=== PATIENT | female | born 1990 | race Caucasian/White ===

== ENCOUNTER → 2017-07-09 | Outpatient (CLI) | payer OTHER ==
[2017-07-09 15:30] LABS: CH 33.1; CHCM 36.4; HCT 41.2 % (34.0-46.0); HDW 2.95; HGB 14.5 gm/dL (11.4-16.0); MCH 32.3 pg (25.0-35.0); MCHC 35.3 g/dL (31.0-37.0); MCV 91.6 fL (80.0-100.0); Mean Platelet Volume 8.4; RDW 15.6 % (11.5-15.5); WBC 13.1 k/uL (3.8-10.6)
[2017-07-09 15:38] LABS: Glucose 76 mg/dL (74-99); Non-African American GFR(MDRD) >60 (>60 ml/min/1.73 sqM)
[2017-07-09 16:10] LABS: Hepatitis B Surface Ag Index 0.05
[2017-07-09 19:15] LABS: Treponemal Ab Non-Reactive (Non-Reactive)
[2017-07-10 04:26] LABS: Toxoplasma Antibody (IgG) <3.0 IU/mL (<7.2)
== END | disposition home or self-care (01) ==
LOC: LABWHC1 15:02
PROVIDERS: ATTEND Obstetrics & Gynecology
DX: Z34.02 Encounter for supervision of normal first pregnancy, second trimester (principal)
CPT/HCPCS: 36415; 82565; 82947; 85027; 86762; 86777; 86778; 86780; 86850; 86900; 86901; 87340

== ENCOUNTER 2017-12-17 10:03 | Outpatient (CLI) | payer OTHER ==
[2017-12-17 11:13] LABS: Appearance,Urine Clear (Clear); Bacteria,Urine Many /hpf; Bilirubin,Urine Negative (Negative); Blood,Urine Negative (Negative); Color,Urine Light Yellow; Glucose,Urine (UA) Negative (Negative); Ketones,Urine Negative (Negative); Leukocyte Esterase,Urine Trace (Negative); Nitrite,Urine Negative (Negative); Protein,Urine Negative (Negative); RBC,Urine <1 /hpf (0-5); Specific Gravity,Urine 1.003 (1.001-1.035); Squamous Epithelial Cell,Urine 7 /hpf (0-4); Urobilinogen,Urine <2.0 mg/dL (<2.0); WBC,Urine 2 /hpf (0-5)
[2017-12-17 11:19] LABS: ALT 18 U/L (9-52); AST 13 U/L (14-36); Blood Urea Nitrogen 5 mg/dL (7-17); LDH 362 U/L (313-618); Uric Acid 5.5 mg/dL (3.7-7.4)
[2017-12-17 11:38] LABS: Basophils % (A) 0 %; Eosinophils # (A) 0.1 k/uL (0-0.7); Eosinophils % (A) 0 %; HCT 38.2 % (34.0-46.0); HGB 13.3 gm/dL (11.4-16.0); Lymphocytes # (A) 1.6 k/uL (1.0-4.8); Lymphocytes % (A) 13 %; MCH 32.3 pg (25.0-35.0); MCHC 34.7 g/dL (31.0-37.0); MCV 93.1 fL (80.0-100.0); Mean Platelet Volume 7.1; Monocytes # (A) 0.7 k/uL (0-1.0); Monocytes % (A) 6 %; Neutrophils # (A) 10.1 k/uL (1.3-7.7); Neutrophils % (A) 80 %; Platelet Count 240 k/uL (150-450); RDW 15.2 % (11.5-15.5); WBC 12.6 k/uL (3.8-10.6)
--- NOTE | 2018-01-11 12:21 | P.MSEPDOC ---
Presenting Problems - Arrival Data Date of Arrival on Unit: 12/17/17 Time of Arrival on Unit: 10:05 Mode of Transport: Ambulatory Disposition - Disposition Discharge Date: 12/17/17 Discharge Time: 11:58 I agree with the RN Medical Screening Exam: Yes Risk & Benefit of care provided described in d/c instruction: Yes Diagnosis: UNSPECIFIED MATERNAL HYPERTENSION, THIRD TRIMESTER
== END 2017-12-17 11:58 | disposition home or self-care (01) ==
LOC: FBPOP 10:03
PROVIDERS: ATTEND Obstetrics & Gynecology
DX: O16.3 Unspecified maternal hypertension, third trimester (principal); Z3A.00 Weeks of gestation of pregnancy not specified
CPT/HCPCS: 59025; 82565; 83615; 84450; 84460; 84520; 84550; 85025; 81001; G0463; 99215

== ENCOUNTER 2017-12-22 19:50 | Outpatient (CLI) | payer OTHER ==
[2017-12-22 20:38] LABS: Amorphous Sediment,Urine Rare /hpf; Appearance,Urine Cloudy (Clear); Bacteria,Urine Occasional /hpf; Bilirubin,Urine Negative (Negative); Blood,Urine Negative (Negative); Color,Urine Light Yellow; Glucose,Urine (UA) Negative (Negative); Ketones,Urine Negative (Negative); Leukocyte Esterase,Urine Negative (Negative); Mucus,Urine Rare /hpf; Protein,Urine Negative (Negative); Specific Gravity,Urine 1.007 (1.001-1.035); Squamous Epithelial Cell,Urine 1 /hpf (0-4); Urobilinogen,Urine <2.0 mg/dL (<2.0); WBC,Urine 2 /hpf (0-5)
[2017-12-22 20:57] VITALS: PULSE 103; TEMP 97
[2017-12-22 21:25] LABS: Basophils % (A) 0 %; Eosinophils # (A) 0.1 k/uL (0-0.7); Eosinophils % (A) 1 %; HCT 39.6 % (34.0-46.0); HGB 13.7 gm/dL (11.4-16.0); Lymphocytes # (A) 1.9 k/uL (1.0-4.8); Lymphocytes % (A) 14 %; MCH 31.3 pg (25.0-35.0); MCHC 34.5 g/dL (31.0-37.0); MCV 90.7 fL (80.0-100.0); Mean Platelet Volume 7.8; Monocytes # (A) 0.8 k/uL (0-1.0); Monocytes % (A) 6 %; Neutrophils # (A) 10.2 k/uL (1.3-7.7); Neutrophils % (A) 77 %; Platelet Count 250 k/uL (150-450); Poikilocytosis Slight; RBC 4.37 m/uL (3.80-5.40); RDW 15.7 % (11.5-15.5); WBC 13.3 k/uL (3.8-10.6)
[2017-12-22 21:28] LABS: Creatinine,Urine Random 61.2 mg/dL
[2017-12-22 21:42] LABS: ALT 24 U/L (9-52); AST 15 U/L (14-36); Blood Urea Nitrogen 6 mg/dL (7-17); LDH 391 U/L (313-618); Uric Acid 5.1 mg/dL (3.7-7.4)
[2017-12-22 22:14] VITALS: BP 125/72; RESP 16
--- NOTE | 2017-12-23 11:29 | P.MSEPDOC ---
Presenting Problems - Arrival Data Date of Arrival on Unit: 12/22/17 Time of Arrival on Unit: 19:50 Mode of Transport: Ambulatory - Complaint OB-Reason for Admission/Chief Complaint: Acute Nausea/Vomiting, PIH, Elevated Blood Pressure Comment: increased swelling, intermittent nausea Medical History - Information : 1 Para: 0 Term: 0 : 0 Abortions: Spontaneous or Elective: 0 Number of Living Children: 0 - Gestational Age Gestational Age by NISREEN (wks/days): 36 Weeks and 5 Days - History Complications: GBS+ Review of Systems - Review of Systems Constitutional: No problems Breast: No problems ENT: No problems Cardiovascular: No problems Respiratory: No problems Gastrointestinal: No problems Genitourinary: No problems Musculoskeletal: No problems Neurological: No problems Skin: No problems Vital Signs - Temperature Temperature: 97.0 F Temperature Source: Temporal Artery Scan - Pulse Right Pulse Rate: 103 Pulse Assessment Method: Pulse Oximetry - Respirations Respiratory Rate: 16 Oxygen Delivery Method: Room Air - Blood Pressure Right Arm Blood Pressure: 125/72 Blood Pressure Mean: 89 Blood Pressure Source: Automatic Cuff Medical Screen Scoring (Pre) - Cervical Exam Dilation: Exam Deferred Effacement: Exam Deferred - Uterine Contractions Frequency: N/A Duration: N/A Intensity: N/A - Maternal Vital Signs Maternal Temperature: N/A Maternal Blood Pressure: Diastolic > 89 = 1 Signs of Preeclampsia: Nausea/Vomiting = 1 Maternal Respirations: N/A - Assessment Baseline FHR: 135 Heart Rate - NICHD Category: Category I (Normal) = 0 NST: Reactive Position: N/A - Total Score Total Score (Pre): 2 - Level of Risk Level of Risk: Low (0-5) Physician Notification (Pre) - Physician Notified Physician Notified Date: 12/22/17 Physician Notified Time: 20:50 Physician/Practitioner Notifed:: Dr Moraes New Order Received: Yes - Notification Comment Comment: reported on c/o n/v and increased LE edema. pt had PIH workup in tr last week with negative results. reported on vitals, fhts, no cntrx, UA results. orders for PIH labs. call with results Medical Screen Scoring (Post) - Cervical Exam Dilation: Exam Deferred Effacement: Exam Deferred Membranes: Intact - Uterine Contractions Frequency: N/A Duration: N/A Intensity: N/A - Maternal Vital Signs Maternal Temperature: N/A Maternal Blood Pressure: N/A Signs of Preeclampsia: N/A Maternal Respirations: N/A - Pain Assessment Pain Scale Used: Numeric (1 - 10) Pain Intensity: 2 Pain Management Goal: 0 Pain Description: *Acute, Tightness Pain Frequency: Intermittent Pain Duration Units: Minutes Pain Behavior: Vocalization Non-Pharmacological Interventions: Distraction, Relaxation Technique - Maternal Trauma Maternal Trauma: N/A - Assessment Heart Rate: 130 Heart Rate - NICHD Category: Category I (Normal) = 0 NST: Reactive Position: N/A - Total Score Total Score (Post): 0 - Post Treatment Level of Risk Post Treatment Level of Risk: Low (0-5) Physician Notification (Post) - Physician Notified Physician Notified Date: 12/22/17 Physician Notified Time: 21:54 Physician/Practitioner Notified:: Dr. Moraes Spoke With: Dr. Moraes New Order Received: Yes (Discharge home with instructions.) Disposition - Disposition OB Disposition: Discharge to home Discharge Date: 12/22/17 Discharge Time: 21:54 I agree with the RN Medical Screening Exam: Yes Risk & Benefit of care provided described in d/c instruction: Yes Diagnosis: GESTATIONAL HTN W/O SIGNIFICANT PROTEINURIA, THIRD TRIMESTER
== END 2017-12-22 21:58 | disposition home or self-care (01) ==
LOC: FBPOP 19:50
PROVIDERS: ATTEND Obstetrics & Gynecology
DX: O13.3 Gestational [pregnancy-induced] hypertension without significant proteinuria, third trimester (principal); Z3A.36 36 weeks gestation of pregnancy
CPT/HCPCS: 59025; 82570; 84156; 82565; 83615; 84450; 84460; 84520; 84550; 85025; 81001; G0463; 99213

== ENCOUNTER 2017-12-27 05:57 | Inpatient (IN) | payer OTHER ==
--- NOTE | 2017-12-26 19:37 | P.HPOB ---
History of Present Illness H&P Date: 12/26/17 Chief Complaint: Gestational hypertension This is a 27-year-old female 1 para 0 with an estimated date of confinement of 01/14/2018, estimated gestational age of 37-3/7 weeks, who presents to labor and delivery for induction of labor secondary to gestational hypertension. For the last 2 weeks she has had elevated blood pressures of 140s over 90s to 140s over 80s. She has been monitored in labor and delivery and all her labs were normal for preeclampsia. She denies any headaches or blurry vision. She has been experiencing some nausea recently. Since she is now over 37 weeks, the decision is made to proceed with induction of labor secondary to gestational hypertension. She has been experiencing irregular contractions. She denies rupture of membranes. labs: GC/chlamydia-negative Rubella-immune RPR-nonreactive Random glucose-76 Hepatitis B surface antigen-negative Hemoglobin-14.6 Toxoplasma antibody-negative Blood type-A+ Antibody screen-negative Obstetrical ultrasound-normal anatomy One hour Glucola-104 Group B streptococcus-positive Obstetrical history: This is her first . Gynecologic history: No history of sexual transmitted diseases. Social history: She is . She is currently not working. Review of Systems Constitutional: Denies chills, Denies fever Eyes: denies blurred vision, denies pain Ears, nose, mouth and throat: Denies headache, Denies sore throat Cardiovascular: Denies chest pain, Denies shortness of breath Respiratory: Denies cough Gastrointestinal: Reports nausea, Denies abdominal pain, Denies diarrhea, Denies vomiting Genitourinary: Reports pelvic pain, Reports Musculoskeletal: Reports low back pain Integumentary: Denies pruritus, Denies rash Neurological: Denies numbness, Denies weakness Past Medical History Past Medical History: Asthma History of Any Multi-Drug Resistant Organisms: None Reported Past Surgical History: No Surgical Hx Reported Past Psychological History: No Psychological Hx Reported Smoking Status: Never smoker Past Alcohol Use History: None Reported Past Drug Use History: None Reported Medications and Allergies Home Medications Medication Instructions Recorded Confirmed Type Pnv No.95/Ferrous Fum/Folic AC 1 each PO DAILY 12/17/17 12/22/17 History [ Multivitamin Tablet] Allergies Allergy/AdvReac Type Severity Reaction Status Date / Time No Known Allergies Allergy Verified 12/22/17 20:07 Exam Osteopathic Statement: *. No significant issues noted on an osteopathic structural exam other than those noted in the History and Physical/Consult. HEENT: Within normal limits Heart: Regular rate and rhythm Lungs: Clear to auscultation bilaterally Abdomen: Cervix: 1-1/2 cm/50%/-3 station heart tones: 150s by Doppler Extremities: Negative Homans Assessment and Plan (1) 37 weeks gestation of Status: Acute Code(s): Z3A.37 - 37 WEEKS GESTATION OF SNOMED Code( s): 51905376 (2) Gestational hypertension Status: Acute Code(s): O13.9 - GESTATIONAL HTN W/O SIGNIFICANT PROTEINURIA, UNSP TRIMESTER SNOMED Code(s): 92057654 Plan: Proceed with oxytocin induction of labor. Expectant management.
[2017-12-27] MEDS ORDERED: AMPICILLIN 2,000 MG in SODIUM CHLORIDE 0.9% 100 ML IVPB STA (06:00)
[2017-12-27] MEDS ORDERED: OXYTOCIN 20 UNITS/1000 ML NS 1,000 ML IV SCH ×2 (06:00→19:16)
[2017-12-27] MEDS ORDERED: OXYTOCIN 10 UNIT/ML 1 ML VIAL IM PRN (06:00)
[2017-12-27] MEDS ORDERED: LIDOCAINE 1% 20 ML VIAL (10MG/ML) FOR IV START INTRADERMA PRN (06:00)
[2017-12-27] MEDS ORDERED: TERBUTALINE 1 MG/ML VIAL SQ PRN (06:00)
[2017-12-27] MEDS ORDERED: METHYLERGONOVINE 0.2 MG/ML 1 ML AMP IM PRN (06:00)
[2017-12-27] MEDS ORDERED: LIDOCAINE 1% (PF) 10 MG/ML (30 ML SDV) SQ PRN (06:00)
[2017-12-27] MEDS ORDERED: CARBOPROST TROMETHAMINE 250 MCG/ML 1 ML AMP IM PRN (06:00)
[2017-12-27 06:30] VITALS: BMI 41.5
[2017-12-27] MEDS: LACTATED RINGERS 1,000 ML IV SCH ×2 (06:33→18:00)
[2017-12-27 06:44] LABS: Basophils % (A) 0 %; Eosinophils # (A) 0.1 k/uL (0-0.7); Eosinophils % (A) 1 %; HCT 39.1 % (34.0-46.0); HGB 14.3 gm/dL (11.4-16.0); Hyperchromasia Slight; Lymphocytes # (A) 1.6 k/uL (1.0-4.8); Lymphocytes % (A) 14 %; MCH 32.7 pg (25.0-35.0); MCHC 36.6 g/dL (31.0-37.0); MCV 89.3 fL (80.0-100.0); Monocytes # (A) 0.7 k/uL (0-1.0); Monocytes % (A) 7 %; Neutrophils # (A) 8.4 k/uL (1.3-7.7); Neutrophils % (A) 76 %; Platelet Count 257 k/uL (150-450); Poikilocytosis Slight; RBC 4.38 m/uL (3.80-5.40); RDW 15.7 % (11.5-15.5); WBC 11.1 k/uL (3.8-10.6)
[2017-12-27 08:42] LABS: Amorphous Sediment,Urine Occasional /hpf; Appearance,Urine Cloudy (Clear); Bacteria,Urine Moderate /hpf; Bilirubin,Urine Negative (Negative); Blood,Urine Negative (Negative); Color,Urine Yellow; Glucose,Urine (UA) Negative (Negative); Ketones,Urine Negative (Negative); Leukocyte Esterase,Urine Moderate (Negative); Mucus,Urine Rare /hpf; Nitrite,Urine Negative (Negative); Protein,Urine Negative (Negative); Specific Gravity,Urine 1.007 (1.001-1.035); Squamous Epithelial Cell,Urine 3 /hpf (0-4); Urobilinogen,Urine <2.0 mg/dL (<2.0); WBC,Urine 12 /hpf (0-5)
[2017-12-27 08:44] LABS: INR 0.9 (<1.2); Partial Thromboplastin Time 22.3 sec (22.0-30.0); Prothrombin Time 9.4 sec (9.0-12.0)
[2017-12-27] MEDS ORDERED: BUPIVACAINE (PF) 0.25% 30 ML VIAL ONE (09:36)
[2017-12-27] MEDS ORDERED: fentaNYL (PF) 50 MCG/ML 5 ML AMP ONE (09:36)
[2017-12-27] MEDS ORDERED: SODIUM CHLORIDE 0.9% 100 ML BAG ONE (09:36)
[2017-12-27] MEDS: AMPICILLIN 1,000 MG in SODIUM CHLORIDE 0.9% 50 ML IVPB SCH ×3 (10:25→21:01)
[2017-12-27] MEDS ORDERED: BUPIVACAINE (PF) 0.25% 25 ML, fentaNYL (PF) 200 MCG in SODIUM CHLORIDE 0.9% 71 ML EPIDURAL ONE (12:00)
--- NOTE | 2017-12-27 18:37 | P.PROBDLV ---
Vaginal Delivery Note - . Vaginal Delivery Note: The patient progressed to complete dilation after oxytocin induction of labor and artificial rupture of membranes with clear fluid noted. She did receive epidural anesthesia. Once reaching complete dilation, she began pushing. Infant's head came to a crown. With one further push, the infant's head delivered across the perineum in a left occiput anterior lie. Nose and mouth were bulb suctioned at the perineum and there was noted to be a loop of cord next to the head but not around the head. With one further push, the remainder the infant easily delivered and was placed on mother's abdomen. Cord was clamped and cut and was taken to warmer for evaluation. A viable female infant was noted with scores of 8 at 1 minute and 8 at 5 minutes and weight of 7 lbs. 15 oz. Placenta delivered shortly thereafter, intact, with a three-vessel cord. Uterus contracted fairly well after oxytocin was given and uterine massage was carried out. Inspection of the perineum revealed a second-degree perineal laceration. This area was anesthetized with 1% lidocaine and then sutured with 3-0 and 2-0 Vicryl suture in the usual multilayer fashion. She did have some abrasions on both inner labia that these were noted to be hemostatic. Estimated blood loss is approximately 250 mL. Mother and infant are in stable condition at this time.
[2017-12-27] MEDS ORDERED: HYDROCORTISONE 2.5% RECTAL CREAM 30 GM TUBE RECTAL PRN (19:16)
[2017-12-27] MEDS ORDERED: ZOLPIDEM 5 MG TAB PO PRN (19:16)
[2017-12-27] MEDS ORDERED: BENZOCAINE/MENTHOL SPRAY 1 GM/SPRAY AEROSOL TOPICAL PRN (19:16)
[2017-12-27] MEDS ORDERED: diphenhydrAMINE 50 MG/ML 1 ML VIAL IVP PRN ×2 (19:16)
[2017-12-27] MEDS ORDERED: diphenhydrAMINE 50 MG CAP PO PRN (19:16)
[2017-12-27] MEDS ORDERED: SIMETHICONE 80 MG CHEWABLE PO PRN (19:16)
[2017-12-27] MEDS ORDERED: diphenhydrAMINE 25 MG CAP PO PRN (19:16)
[2017-12-27] MEDS ORDERED: WITCH HAZEL 1 EACH MED..PAD TOPICAL PRN (19:16)
[2017-12-27] MEDS ORDERED: ACETAMINOPHEN TAB 325 MG TAB PO PRN (19:16)
[2017-12-27] MEDS ORDERED: LANOLIN CREAM 5 GM TUBE TOPICAL PRN (19:16)
[2017-12-27] MEDS: SENNOSIDES-DOCUSATE SODIUM 1 EACH TAB PO SCH (19:40)
[2017-12-27] MEDS: IBUPROFEN 600 MG TAB PO PRN (19:40)
[2017-12-27] MEDS ORDERED: Acetaminophen-Codeine 300-30mg TAB PO PRN ×2 (21:22)
[2017-12-28] MEDS: IBUPROFEN 600 MG TAB PO PRN ×2 (05:12→14:56)
[2017-12-28 07:59] LABS: Basophils % (A) 0 %; Eosinophils # (A) 0.1 k/uL (0-0.7); Eosinophils % (A) 0 %; HCT 33.5 % (34.0-46.0); HGB 11.8 gm/dL (11.4-16.0); Lymphocytes % (A) 13 %; MCH 32.3 pg (25.0-35.0); MCV 92.1 fL (80.0-100.0); Mean Platelet Volume 7.9; Monocytes # (A) 0.9 k/uL (0-1.0); Monocytes % (A) 6 %; Neutrophils # (A) 12.7 k/uL (1.3-7.7); Neutrophils % (A) 80 %; Platelet Count 226 k/uL (150-450); RBC 3.64 m/uL (3.80-5.40); RDW 15.5 % (11.5-15.5)
--- NOTE | 2017-12-28 08:27 | P.DS ---
Providers Date of admission: 12/27/17 05:57 Expected date of discharge: 12/28/17 Attending physician: Anh Moraes Primary care physician: Stated None - Discharge Diagnosis(es) (1) 37 weeks gestation of Current Visit: Yes Status: Acute (2) Gestational hypertension Current Visit: Yes Status: Acute Hospital Course: This is a 27-year-old female 1 para 0 at 37-3/7 weeks who presented for induction of labor secondary to gestational hypertension. She denied any headaches or blurry vision but she did have some nausea. She underwent oxytocin induction of labor and delivered vaginally a viable female infant on with scores of 8 at 1 minute and 8 at 5 minutes and infant weight of 7 lbs. 15 oz. Her course has been essentially uncompensated. Her blood pressures have been mostly in the normal range with some as high as 140s systolic. Lochia is decreasing. She is taking ibuprofen for pain with some relief. She took some Tylenol 3 but that only made her groggy and did not help her pain. She is bottle feeding but plans to pump breast milk and feed with the bottle. Abdomen is soft with fundus firm and nontender. Extremities show negative Homans. Impression is status post vaginal delivery day #1. Plan is to discharge home later today. Routine instructions are given. She is advised to follow up in the office in 6 weeks for a check. She is advised to call the office if she has any questions or concerns prior to her appointment time. She will be given a prescription for ibuprofen. She has a breast pump at home. Procedures: Oxytocin induction of labor Spontaneous vaginal delivery of a viable female infant on 12/27/2017 Patient Condition at Discharge: Stable Plan - Discharge Summary New Discharge Prescriptions: New Ibuprofen [Motrin] 600 mg PO Q6HR PRN #60 tab PRN Reason: Mild Pain Or Fever >= 100.5 Continue Pnv No.95/Ferrous Fum/Folic AC [ Multivitamin Tablet] 1 each PO DAILY Discharge Medication List Pnv No.95/Ferrous Fum/Folic AC [ Multivitamin Tablet] 1 each PO DAILY [History] Ibuprofen [Motrin] 600 mg PO Q6HR PRN #60 tab 12/28/17 [Rx] Follow up Appointment(s)/Referral(s): Anh Moraes DO [Doctor of Osteopathic Medicine] - 6 Weeks Activity/Diet/Wound Care/Special Instructions: Instructions 1. Do not begin any exercise program for 3 weeks. 2. Do not resume sexual relations for 3 weeks or longer if uncomfortable. 3. You may take tub baths or showers at any time. 4. You may use tampons if desired after 3 weeks. 5. Keep the area of episiotomy (stitches) clean and dry. 6. If you are not nursing, wear a good fitting, supportive bra during the day and limit fluid intake for at least 1 week to prevent breast engorgement. 7. Call the office, [phone], within the next week to make appointment for your 6 week checkup if it has not already been made. 8. Report any of the following occurrences to the doctor promptly: a. Heavy, excessive bleeding b. Chills, fever c. Burning or frequency of urination d. Pain or redness and breasts if nursing e. Increasing pain or swelling in episiotomy (stitches). In addition to the above instructions, the following additional should be followed: 1. No heavy lifting or straining (exercising) until after 6 week checkup. 2. Keep abdominal incision clean and dry: You may wear a dressing if more comfortable. 3. Make office appointment for 10 days after going home or as instructed by her doctor. Discharge Disposition: HOME SELF-CARE
[2017-12-28 09:13] VITALS: RESP 14; TEMP 98
[2017-12-28] MEDS: SENNOSIDES-DOCUSATE SODIUM 1 EACH TAB PO SCH (09:14)
[2017-12-28 16:22] VITALS: BP 132/84; PULSE 96
== END 2017-12-28 19:33 | disposition home or self-care (01) | DRG 775 ==
LOC: 4FBP 05:57
PROVIDERS: ADMIT Obstetrics & Gynecology; ATTEND Obstetrics & Gynecology
PROC: 10E0XZZ Delivery of Products of Conception, External Approach (ICD-10-PCS; principal; 2017-12-27)
PROC: 0KQM0ZZ Repair Perineum Muscle, Open Approach (ICD-10-PCS; 2017-12-27)
PROC: 3E033VJ Introduction of Other Hormone into Peripheral Vein, Percutaneous Approach (ICD-10-PCS; 2017-12-27)
PROC: 10907ZC Drainage of Amniotic Fluid, Therapeutic from Products of Conception, Via Natural or Artificial Opening (ICD-10-PCS; 2017-12-27)
DX: O13.4 Gestational [pregnancy-induced] hypertension without significant proteinuria, complicating childbirth (principal); O99.52 Diseases of the respiratory system complicating childbirth; O70.1 Second degree perineal laceration during delivery; J45.909 Unspecified asthma, uncomplicated; Z37.0 Single live birth; Z3A.37 37 weeks gestation of pregnancy
CPT/HCPCS: 81001; 85025; 85610; 85730; 88307

== ENCOUNTER 2019-09-10 19:53 | Outpatient (CLI) | payer OTHER ==
[2019-09-10 20:48] LABS: Appearance,Urine Clear (Clear); Bacteria,Urine Occasional /hpf; Bilirubin,Urine Negative (Negative); Blood,Urine Negative (Negative); Color,Urine Light Yellow; Glucose,Urine (UA) Negative (Negative); Ketones,Urine Negative (Negative); Leukocyte Esterase,Urine Moderate (Negative); Nitrite,Urine Negative (Negative); PH, Urine 6.5 (5.0-8.0); Protein,Urine Negative (Negative); RBC,Urine 1 /hpf (0-5); Specific Gravity,Urine 1.006 (1.001-1.035); Squamous Epithelial Cell,Urine 5 /hpf (0-4); Urobilinogen,Urine <2.0 mg/dL (<2.0); WBC,Urine 13 /hpf (0-5)
[2019-09-10 21:26] VITALS: BP 129/59; PULSE 111; RESP 18; TEMP 97.3
--- NOTE | 2019-09-25 05:41 | P.MSEPDOC ---
Presenting Problems - Arrival Data Date of Arrival on Unit: 09/10/19 Time of Arrival on Unit: 20:00 Mode of Transport: Wheelchair - Complaint OB-Reason for Admission/Chief Complaint: Pain Medical History - Information : 2 Para: 1 Term: 1 : 0 Abortions: Spontaneous or Elective: 0 Number of Living Children: 1 - Gestational Age Gestational Age by NISREEN (wks/days): 27 Weeks and 5 Days Review of Systems - Review of Systems Constitutional: No problems Breast: No problems ENT: No problems Cardiovascular: No problems Respiratory: No problems Gastrointestinal: No problems Genitourinary: No problems Musculoskeletal: No problems Neurological: No problems Skin: No problems Vital Signs - Temperature Temperature: 97.3 F Temperature Source: Temporal Artery Scan - Pulse Right Brachial Pulse Rate: 111 Pulse Assessment Method: Automatic Cuff - Respirations Respiratory Rate: 18 Oxygen Delivery Method: Room Air O2 Sat by Pulse Oximetry: 98 - Blood Pressure Right Arm Blood Pressure: 129/59 Blood Pressure Mean: 82 Blood Pressure Source: Automatic Cuff Medical Screen Scoring (Pre) - Cervical Exam Dilation: Exam Deferred Effacement: Exam Deferred Membranes: Intact - Uterine Contractions Frequency: N/A - Maternal Vital Signs Maternal Temperature: N/A Maternal Blood Pressure: N/A Signs of Preeclampsia: N/A Maternal Respirations: N/A - Maternal Trauma Maternal Trauma: N/A - Assessment - Baby A Baseline FHR: 140 Heart Rate - NICHD Category: Category I (Normal) = 0 - Total Score - Baby A Total Score - Baby A: 0 - Total Score - Baby B Total Score - Baby B: 0 - Total Score - Baby C Total Score - Baby C: 0 - Level of Risk - Baby A Level of Risk - Baby A: Low (0-5) - Level of Risk - Baby B Level of Risk - Baby B: Low (0-5) - Level of Risk - Baby C Level of Risk - Baby C: Low (0-5) Physician Notification (Pre) - Physician Notified Physician Notified Date: 09/10/19 Physician Notified Time: 20:26 - Notification Comment Comment: RN relayed UA results. RN instructed to add culture to UA and have patient call. office tomorrow for antibiotic prescription. Lab called, Culture added to previous urine. sample. RN to instruct patient to drink plenty of water and rest. Patient updated on plan of care and in agreement. Disposition - Disposition OB Disposition: Discharge to home Discharge Date: 09/10/19 Discharge Time: 21:20 I agree with the RN Medical Screening Exam: Yes Risk & Benefit of care provided described in d/c instruction: Yes Diagnosis: URINARY TRACT INFECTION, SITE NOT SPECIFIED
== END 2019-09-10 21:20 | disposition home or self-care (01) ==
LOC: FBPOP 19:53
PROVIDERS: ATTEND Obstetrics & Gynecology
DX: O23.42 Unspecified infection of urinary tract in pregnancy, second trimester (principal); Z3A.27 27 weeks gestation of pregnancy
CPT/HCPCS: 81001; 87086; G0463; 99213

== ENCOUNTER 2019-09-27 20:49 | Outpatient (CLI) | payer OTHER ==
[2019-09-27 21:40] LABS: Amorphous Sediment,Urine Rare /hpf; Appearance,Urine Cloudy (Clear); Bacteria,Urine Rare /hpf; Bilirubin,Urine Negative (Negative); Blood,Urine Negative (Negative); Color,Urine Yellow; Glucose,Urine (UA) Negative (Negative); Ketones,Urine Negative (Negative); Leukocyte Esterase,Urine Large (Negative); Mucus,Urine Rare /hpf; Nitrite,Urine Negative (Negative); Protein,Urine Negative (Negative); RBC,Urine 1 /hpf (0-5); Specific Gravity,Urine 1.008 (1.001-1.035); Squamous Epithelial Cell,Urine 7 /hpf (0-4); Urobilinogen,Urine <2.0 mg/dL (<2.0); WBC,Urine 14 /hpf (0-5)
[2019-09-27 22:28] LABS: Basophils % (A) 0 %; Eosinophils # (A) 0.1 k/uL (0-0.7); Eosinophils % (A) 1 %; HCT 37.6 % (34.0-46.0); HGB 13.3 gm/dL (11.4-16.0); Lymphocytes # (A) 2.2 k/uL (1.0-4.8); Lymphocytes % (A) 15 %; MCH 32.6 pg (25.0-35.0); MCHC 35.4 g/dL (31.0-37.0); MCV 92.1 fL (80.0-100.0); Mean Platelet Volume 7.6; Monocytes # (A) 0.7 k/uL (0-1.0); Monocytes % (A) 5 %; Neutrophils # (A) 11.5 k/uL (1.3-7.7); Neutrophils % (A) 78 %; Platelet Count 282 k/uL (150-450); RBC 4.09 m/uL (3.80-5.40); RDW 15.6 % (11.5-15.5); WBC 14.7 k/uL (3.8-10.6)
[2019-09-27 22:30] VITALS: BP 145/72; TEMP 98
[2019-09-27 22:54] LABS: ALT 22 U/L (9-52); AST 16 U/L (14-36); African American GFR (CKD) >90 (>60 ml/min/1.73 sqM); Blood Urea Nitrogen 7 mg/dL (7-17); LDH 368 U/L (313-618); Non-African American GFR(CKD) >90 (>60 ml/min/1.73 sqM); Uric Acid 4.9 mg/dL (3.7-7.4)
[2019-09-28 00:28] VITALS: PULSE 98; RESP 15
--- NOTE | 2019-09-28 07:34 | P.MSEPDOC ---
Presenting Problems - Arrival Data Date of Arrival on Unit: 09/27/19 Time of Arrival on Unit: 20:49 Mode of Transport: Ambulatory - Complaint OB-Reason for Admission/Chief Complaint: Acute Nausea/Vomiting, Headache, PIH Medical History - Information : 2 Para: 1 Term: 1 : 0 Abortions: Spontaneous or Elective: 0 Number of Living Children: 1 - Gestational Age Gestational Age by NISREEN (wks/days): 30 Weeks and 1 Days - History Complications: Preeclampsia Review of Systems - Review of Systems Constitutional: No problems Breast: No problems ENT: No problems Cardiovascular: No problems Respiratory: No problems Gastrointestinal: No problems Genitourinary: No problems Musculoskeletal: No problems Neurological: No problems Skin: No problems Vital Signs - Temperature Temperature: 98.0 F Temperature Source: Oral - Pulse Pulse Oximetery Pulse Rate: 98 Pulse Assessment Method: Pulse Oximetry - Respirations Respiratory Rate: 15 Oxygen Delivery Method: Room Air O2 Sat by Pulse Oximetry: 98 - Blood Pressure Right Arm Blood Pressure: 145/72 Blood Pressure Mean: 96 Blood Pressure Source: Automatic Cuff Medical Screen Scoring (Pre) - Cervical Exam Dilation: Exam Deferred Effacement: Exam Deferred Membranes: Intact - Uterine Contractions Frequency: N/A Duration: N/A Intensity: N/A - Maternal Vital Signs Maternal Temperature: N/A Maternal Blood Pressure: Systolic >139 = 2 Signs of Preeclampsia: Headache = 1, Nausea/Vomiting = 1 Maternal Respirations: N/A - Maternal Trauma Maternal Trauma: N/A - Assessment - Baby A Baseline FHR: 150 NST: Reactive Position: N/A Station: N/A - Total Score - Baby A Total Score - Baby A: 4 - Total Score - Baby B Total Score - Baby B: 4 - Total Score - Baby C Total Score - Baby C: 4 - Level of Risk - Baby A Level of Risk - Baby A: Low (0-5) - Level of Risk - Baby B Level of Risk - Baby B: Low (0-5) - Level of Risk - Baby C Level of Risk - Baby C: Low (0-5) Physician Notification (Pre) - Physician Notified Physician Notified Date: 09/27/19 Physician Notified Time: 21:20 New Order Received: Yes - Notification Comment Comment: Dr. Escobar notified of pt elevated BP at home which presents to triage with recent nausea and vomiting and headache. Current BP reported 145/72. Medical Screen Scoring (Post) - Cervical Exam Dilation: Exam Deferred Effacement: Exam Deferred Membranes: Intact - Uterine Contractions Frequency: N/A Duration: N/A Intensity: N/A - Maternal Vital Signs Maternal Temperature: N/A Maternal Blood Pressure: Systolic >139 = 2 Signs of Preeclampsia: N/A, Headache = 1, Nausea/Vomiting = 1 Maternal Respirations: N/A - Pain Assessment Pain Scale Used: Numeric (1 - 10) Pain Intensity: 0 Pain Management Goal: 2 - Maternal Trauma Maternal Trauma: N/A - Assessment - Baby A Heart Rate: 140 NST: Reactive Position: N/A Station: N/A - Total Score Total Score - Baby A: 4 Total Score - Baby B: 4 Total Score - Baby C: 4 - Post Treatment Level of Risk Post Treatment Level of Risk - Baby A: Low (0-5) Post Treatment Level of Risk - Baby B: Low (0-5) Post Treatment Level of Risk - Baby C: Low (0-5) Physician Notification (Post) - Physician Notified Physician Notified Date: 09/28/19 Physician Notified Time: 23:30 Physician/Practitioner Notified:: Dr. Escobar New Order Received: Yes - Notification Comment Comment: Notified of elevated BP's and pt complaints of headache and nausea and vomiting. Disposition - Disposition OB Disposition: Discharge to home Transferred to:: home Discharge Date: 09/28/19 Discharge Time: 23:45 I agree with the RN Medical Screening Exam: Yes Risk & Benefit of care provided described in d/c instruction: Yes Diagnosis: GESTATIONAL HTN W/O SIGNIFICANT PROTEINURIA, THIRD TRIMESTER (Patient called me with complaints of significant blood pressure elevation (systolic 160), headaches, malaise, nausea and vomiting. Patient has been followed by Dr. Moraes and maternal- medicine apparently for gestational hypertension and history of preeclampsia. Patient had normal blood work 1 day ago. Patient also had normal protein to creatinine ratio 1 day ago. Patient's blood pressures here are not persistently elevated and are certainly not at a level that need to be treated. I did repeat this patient's blood work and urine protein to creatinine and there is no evidence of preeclampsia at this time. I did have the nurse discussed with the patient concern about the patient's home blood pressure cuff it appears this cuff may not be used properly and it is too small given this patient's size. Patient is instructed follow-up tomorrow for a blood pressure check in the office. She returned to labor and delivery if she has further concerns her symptomatology. At this time there is no evidence of significant gestational hypertension that warrants hospitalization.)
== END 2019-09-27 23:45 | disposition home or self-care (01) ==
LOC: FBPOP 20:49
PROVIDERS: ATTEND Obstetrics & Gynecology
DX: O13.3 Gestational [pregnancy-induced] hypertension without significant proteinuria, third trimester (principal); Z3A.30 30 weeks gestation of pregnancy
CPT/HCPCS: 59025; 82570; 84156; 82565; 83615; 84450; 84460; 84520; 84550; 85025; 81001; G0463; 99215

== ENCOUNTER 2019-11-12 02:45 | Inpatient (IN) | payer BC ==
[2019-11-12] MEDS ORDERED: LIDOCAINE 0.5% (PF) 5 MG/ML (50 ML SDV) SQ PRN (03:24)
[2019-11-12] MEDS ORDERED: METHYLERGONOVINE 0.2 MG/ML 1 ML AMP IM PRN (03:24)
[2019-11-12] MEDS ORDERED: CARBOPROST TROMETHAMINE 250 MCG/ML 1 ML AMP IM PRN (03:24)
[2019-11-12] MEDS ORDERED: TERBUTALINE 1 MG/ML VIAL SQ PRN (03:24)
[2019-11-12] MEDS ORDERED: OXYTOCIN 10 UNIT/ML 1 ML VIAL IM PRN (03:24)
[2019-11-12] MEDS ORDERED: OXYTOCIN 30 UNITS/500 ML NS 30 UNIT in SALINE 1 500ML.BAG IV SCH (03:30)
[2019-11-12] MEDS ORDERED: AMPICILLIN 2,000 MG in SODIUM CHLORIDE 0.9% 100 ML IVPB ONE (03:30)
[2019-11-12] MEDS: LACTATED RINGERS 1,000 ML IV SCH ×2 (04:13→09:30)
[2019-11-12 04:27] LABS: Basophils # (A) 0.1 k/uL (0-0.2); Basophils % (A) 1 %; Eosinophils # (A) 0.1 k/uL (0-0.7); Eosinophils % (A) 1 %; HCT 40.7 % (34.0-46.0); Lymphocytes # (A) 1.8 k/uL (1.0-4.8); Lymphocytes % (A) 14 %; MCH 32.5 pg (25.0-35.0); MCHC 34.5 g/dL (31.0-37.0); MCV 94.2 fL (80.0-100.0); Mean Platelet Volume 7.7; Monocytes # (A) 0.8 k/uL (0-1.0); Monocytes % (A) 6 %; Neutrophils # (A) 10.3 k/uL (1.3-7.7); Neutrophils % (A) 77 %; Platelet Count 275 k/uL (150-450); Poikilocytosis Slight; RBC 4.32 m/uL (3.80-5.40); RDW 15.9 % (11.5-15.5); WBC 13.4 k/uL (3.8-10.6)
--- NOTE | 2019-11-12 07:31 | P.HPOB ---
History of Present Illness H&P Date: 11/12/19 Chief Complaint: Intrauterine 36 weeks: contractions with advanced cervica Janel is a 29-year-old at 36 weeks 5 days gestation with a history of -induced hypertension and suspected velamentous cord insertion. She was seen in the office yesterday and was noted to be dilated to 5 cm. Throughout the day and into the evening she continued to have contractions and when they were approximately 3-5 minutes apart came to labor and delivery and was felt to be dilated to 6 cm. As she is significantly dilated a decision to admit her at least for observation status was made and 2 office to reassess her contractions and rule out labor she apparently is scheduled already in the next couple of days for induction due to her twins induced hypertension. It is noted that her group B strep is also positive. Likely should start antibio tics prior to rupture membranes but this will be Dr. Carmona's decision. Initial blood pressure in labor and delivery was approximately 147/80. She had no signs or symptoms of preeclampsia and has been examined and checked for this prior. Platelet count was 2 and 75. She relates that she had no other issues with the and has no other medical or surgical history. Category 1 tracings noted and decision on with her today we'll be up to Dr. Carmona when she evaluates her this morning. I did explain to the patient that there is a chance that she could go home versus potentially being induced if she is dilated to 6 with that significant of advanced dilatation and continued contractions. She did relate that the contractions did space out a little bit through the night but now again this morning are becoming stronger and closer together and becoming uncomfortable. Past Medical History Past Medical History: Asthma History of Any Multi-Drug Resistant Organisms: None Reported Past Surgical History: No Surgical Hx Reported Past Anesthesia/Blood Transfusion Reactions: No Reported Reaction Past Psychological History: No Psychological Hx Reported Smoking Status: Never smoker Past Alcohol Use History: None Reported Past Drug Use History: None Reported - Past Family History Mother Family Medical History: No Reported History Medications and Allergies Home Medications Medication Instructions Recorded Confirmed Type Pnv No.95/Ferrous Fum/Folic AC 1 each PO DAILY 12/17/17 11/12/19 History [ Multivitamin Tablet] Aspirin [Adult Low Dose Aspirin EC] 1 tab PO DAILY 09/10/19 11/12/19 History Allergies Allergy/AdvReac Type Severity Reaction Status Date / Time No Known Allergies Allergy Verified 11/12/19 02:53 Exam Osteopathic Statement: *. No significant issues noted on an osteopathic structural exam other than those noted in the History and Physical/Consult. Vital Signs Temp Pulse Resp BP Pulse Ox 11/12/19 03:23 96.6 F L 116 H 16 147/76 11/12/19 02:53 96.6 F L 116 H 16 147/76 98 Intake and Output 11/11/19 11/12/19 11/12/19 22:59 06:59 14:59 Other: # Voids 1 Weight 122.47 kg - OBG Physical Exam Breast: both: normal (no masses) Abdomen: bowel sounds normal, no diffuse tenderness, no bruit present, no guarding noted, no hepatomegaly, no splenomegaly, no mass Vulva: both: normal Vagina: normal moisture, no discharge Cervix: no lesion, no discharge Uterus: normal size, normal contour Adnexa: both: normal Anus/Rectum: normal perianal skin, no rectal mass, no hemorrhoids, heme negative Results Result Diagrams: 11/12/19 04:00 Abnormal Lab Results - Last 24 Hours (Table) 11/12/19 Range/Units 04:00 WBC 13.4 H (3.8-10.6) k/uL RDW 15.9 H (11.5-15.5) % Neutrophils # 10.3 H (1.3-7.7) k/uL
[2019-11-12] MEDS: AMPICILLIN 1,000 MG in SODIUM CHLORIDE 0.9% 50 ML IVPB SCH ×2 (08:10→12:47)
--- NOTE | 2019-11-12 09:03 | P.PN ---
Progress Note - Text Progress Note Date: 11/12/19 Patient states that her contractions are still intense but not extremely regular this morning. She has been able to dose in between contractions. Cervical exam for myself is 7-1/2-8/60-70%/-2 station. Artificial rupture membranes is carried out with clear fluid noted. heart tones are category 1. Contractions are 5-7 minutes. She has received 2 doses of ampicillin. Impression is intrauterine at 36-5/7 weeks with advanced cervical dilation and early active labor, gestational hypertension. Plan is to admit for active labor and expectant management. May have epidural if desired.
[2019-11-12] MEDS ORDERED: ROPIVACAINE 100 MG, fentaNYL (PF) 200 MCG in SODIUM CHLORIDE 0.9% 76 ML EPIDURAL ONE (13:23)
--- NOTE | 2019-11-12 13:53 | P.PROBDLV ---
Vaginal Delivery Note - . Vaginal Delivery Note: The patient progressed to complete dilation after oxytocin augmentation of labor and artificial rupture of membranes with clear fluid noted. She did receive several doses of antibiotics while in labor. Once reaching complete, she began pushing. 's head came to a crown. With one further push, the infant's head delivered across the perineum followed by the anterior shoulder. Nose and mouth were bulb suctioned at the perineum. With one further push, the remainder the infant easily delivered and was placed on mother's abdomen. Cord was clamped and cut and infant was taken to warmer for evaluation. A viable male infant was noted with scores of 9 at 1 minute and 9 at 5 minutes and infant weight is pending at this time. Placenta delivered shortly thereafter, intact, with a three-vessel cord. Uterus contracted fairly well after oxytocin was given and uterine massage was carried out. A gloved hand was placed within the uterine cavity and a small amount of membranous tissue was removed. Uterus did firm up well. Inspection of the perineum revealed a few small abrasions but no active bleeding noted. Estimated blood loss is approximately 200 mL's. Both mother and infant are in stable condition.
[2019-11-12] MEDS ORDERED: BENZOCAINE/MENTHOL SPRAY 1 GM/SPRAY AEROSOL TOPICAL PRN (14:13)
[2019-11-12] MEDS ORDERED: ZOLPIDEM 5 MG TAB PO PRN (14:13)
[2019-11-12] MEDS ORDERED: diphenhydrAMINE 25 MG CAP PO PRN (14:13)
[2019-11-12] MEDS ORDERED: WITCH HAZEL 1 EACH MED..PAD TOPICAL PRN (14:13)
[2019-11-12] MEDS ORDERED: LANOLIN CREAM 5 GM TUBE TOPICAL PRN (14:13)
[2019-11-12] MEDS ORDERED: diphenhydrAMINE 50 MG/ML 1 ML VIAL IVP PRN ×2 (14:13)
[2019-11-12] MEDS ORDERED: SIMETHICONE 80 MG CHEWABLE PO PRN (14:13)
[2019-11-12] MEDS ORDERED: ACETAMINOPHEN TAB 325 MG TAB PO PRN (14:13)
[2019-11-12] MEDS ORDERED: HYDROCORTISONE 2.5% RECTAL CREAM 30 GM TUBE RECTAL PRN (14:13)
[2019-11-12] MEDS ORDERED: OXYTOCIN 20 UNITS/1000 ML NS 1,000 ML IV SCH (14:13)
[2019-11-12] MEDS ORDERED: diphenhydrAMINE 50 MG CAP PO PRN (14:13)
[2019-11-12] MEDS: IBUPROFEN 600 MG TAB PO PRN (21:21)
[2019-11-12] MEDS: SENNOSIDES-DOCUSATE SODIUM 1 EACH TAB PO SCH (21:21)
[2019-11-13] MEDS: IBUPROFEN 600 MG TAB PO PRN ×2 (06:11→13:22)
[2019-11-13 07:50] LABS: Anisocytosis Slight; Basophils # (A) 0.1 k/uL (0-0.2); Basophils % (A) 1 %; Eosinophils # (A) 0.2 k/uL (0-0.7); Eosinophils % (A) 1 %; HCT 35.3 % (34.0-46.0); HGB 12.3 gm/dL (11.4-16.0); Lymphocytes # (A) 1.9 k/uL (1.0-4.8); Lymphocytes % (A) 15 %; MCH 33.1 pg (25.0-35.0); MCHC 34.8 g/dL (31.0-37.0); Mean Platelet Volume 8.1; Monocytes # (A) 0.8 k/uL (0-1.0); Monocytes % (A) 6 %; Neutrophils # (A) 9.7 k/uL (1.3-7.7); Neutrophils % (A) 75 %; Platelet Count 215 k/uL (150-450); Poikilocytosis Slight; RBC 3.72 m/uL (3.80-5.40); RDW 16.2 % (11.5-15.5); WBC 12.9 k/uL (3.8-10.6)
--- NOTE | 2019-11-13 09:10 | P.DS ---
Providers Date of admission: 11/12/19 03:17 Expected date of discharge: 11/13/19 Attending physician: Anh Moraes Primary care physician: Stated None Hospital Course: This is a 29-year-old female 2 para 1 at 36-5/7 weeks who presented in early active labor. Her was complicated by gestational hypertension and a velamentous cord insertion. She has been followed by maternal medicine throughout the . Upon arrival her blood pressures were stable however she was noted to be 6 cm. She was having irregular but persistent contractions. She was admitted and started on antibiotic prophylaxis for group B streptococcus. She underwent oxytocin augmentation of labor and artificial rupture membranes with clear fluid noted. She delivered vaginally a viable male infant on 11/12/2019 with scores of 9 at 1 minute and 9 at 5 minutes and infant weight of 8 lbs. 8 oz. Her course has been uncomplicated. Vital signs are stable. Lochia is decreasing. Abdomen is soft with fundus firm and nontender. Extremities show negative Homans. She is bottle feeding but plans to pump and feed with a bottle. Impression is status post vaginal delivery day #1. Plan is to discharge home today as long as they became go home. She will be given a prescription for ibuprofen. She is advised to monitor her blood pressures at home and call if she has any severely elevated blood pressures. She is advised follow-up in the office in 6 weeks for check. She is advised to call the office if she has any further questions or concerns prior to her appointment time. Routine instructions are given. Procedures: Oxytocin augmentation of labor. Spontaneous vaginal delivery of a viable male on 11/12/2019 Patient Condition at Discharge: Stable Plan - Discharge Summary New Discharge Prescriptions: New Ibuprofen [Motrin] 600 mg PO Q6HR PRN #60 tab PRN Reason: Mild Pain Or Fever >= 100.5 Continue Pnv No.95/Ferrous Fum/Folic AC [ Multivitamin Tablet] 1 each PO DAILY Discontinued Aspirin [Adult Low Dose Aspirin EC] 1 tab PO DAILY Discharge Medication List Pnv No.95/Ferrous Fum/Folic AC [ Multivitamin Tablet] 1 each PO DAILY 12/17/17 [History] Ibuprofen [Motrin] 600 mg PO Q6HR PRN #60 tab 11/13/19 [Rx] Follow up Appointment(s)/Referral(s): Anh Moraes DO [Doctor of Osteopathic Medicine] - 6 Weeks Activity/Diet/Wound Care/Special Instructions: Instructions 1. Do not begin any exercise program for 3 weeks. 2. Do not resume sexual relations for 3 weeks or longer if uncomfortable. 3. You may take tub baths or showers at any time. 4. You may use tampons if desired after 3 weeks. 5. Keep the area of episiotomy (stitches) clean and dry. 6. If you are not nursing, wear a good fitting, supportive bra during the day and limit fluid intake for at least 1 week to prevent breast engorgement. 7. Call the office, [phone], within the next week to make appointment for your 6 week checkup if it has not already been made. 8. Report any of the following occurrences to the doctor promptly: a. Heavy, excessive bleeding b. Chills, fever c. Burning or frequency of urination d. Pain or redness and breasts if nursing e. Increasing pain or swelling in episiotomy (stitches). In addition to the above instructions, the following additional should be followed: 1. No heavy lifting or straining (exercising) until after 6 week checkup. 2. Keep abdominal incision clean and dry: You may wear a dressing if more comfortable. 3. Make office appointment for 10 days after going home or as instructed by her doctor. Discharge Disposition: HOME SELF-CARE
[2019-11-13 10:25] VITALS: BP 126/81; PULSE 98; RESP 18; TEMP 97.6
[2019-11-13] MEDS: SENNOSIDES-DOCUSATE SODIUM 1 EACH TAB PO SCH (13:22)
== END 2019-11-13 17:20 | disposition home or self-care (01) | DRG 807 ==
LOC: FBPOP 02:45 → 4FBP 03:17
PROVIDERS: ADMIT Obstetrics & Gynecology; ATTEND Obstetrics & Gynecology
PROC: 10907ZC Drainage of Amniotic Fluid, Therapeutic from Products of Conception, Via Natural or Artificial Opening (ICD-10-PCS; principal; 2019-11-12)
PROC: 10E0XZZ Delivery of Products of Conception, External Approach (ICD-10-PCS; principal; 2019-11-12)
PROC: 3E033VJ Introduction of Other Hormone into Peripheral Vein, Percutaneous Approach (ICD-10-PCS; principal; 2019-11-12)
DX: O13.4 Gestational [pregnancy-induced] hypertension without significant proteinuria, complicating childbirth (principal); Z37.0 Single live birth; O43.123 Velamentous insertion of umbilical cord, third trimester; O99.52 Diseases of the respiratory system complicating childbirth; J45.909 Unspecified asthma, uncomplicated; Z3A.36 36 weeks gestation of pregnancy; Z79.82 Long term (current) use of aspirin
CPT/HCPCS: 59025; 85025; 86850; 86900; 86901; 88307; 99213